=== PATIENT | male | born 1985 | race American Indian/Alaskan Native ===

== ENCOUNTER 2018-12-28 13:35 | Emergency (ER) | payer SELFPAY ==
--- NOTE | 2018-12-28 13:57 | Emergency Department Report ---
Blank Doc - Documentation Documentation: C/O weakness times 3-4 days. Admits to Smoking [place]. Hx/o anxiety. Feeling t ingling in hands and feet. No Vomiting admits to nauseated. Reports to increase anxiety which he will than smoke more [place]. No CP or SOB. This initial assessment diagnostic orders/clinical plan/treatment (s) is/Are subject change based on patient's health status, clinical progression and re- assessment by fellow clinical providers in the ED. Further treatment and work-up at subsequent clinical providers discretion. Patient/guardians urged not to elope from s their condition may be serious if not clinically assessed and managed. Inital order include:
--- NOTE | 2018-12-28 15:21 | Emergency Department Report ---
ED General Adult HPI - General Chief complaint: Weakness Stated complaint: WEAKNESS Time Seen by Provider: 12/28/18 13:54 Source: patient Mode of arrival: Ambulatory Limitations: No Limitations - History of Present Illness Initial comments: Patient is a 33-year-old male who is presenting with tingling to his hands and feet. Patient states this started several days ago. Patient states that a week ago he started having some tooth pain and took a Percocet. After taking the Percocet the next day the patient felt "weird". Patient then because of the strange feeling he was experiencing started smoking weed. Patient states he has been anxious since. Patient states he's had anxious feelings after smoking marijuana in the past. Patient denies any fevers chills nausea vomiting diarrhea at this time. Patient states the tingling is a hands and feet and occasionally does feel palpitations. Severity scale (0 -10): 0 Consistency: constant Associated Symptoms: denies: chest pain, cough, diaphoresis, fever/chills, loss of appetite, malaise, nausea/vomiting, rash, seizure, shortness of breath, syncope, weakness - Related Data Previous Rx's Medication Instructions Recorded Last Taken Type LORazepam [Ativan] 0.5 mg PO BID #14 tab 06/08/16 Unknown Rx Promethazine [Phenergan TAB] 25 mg PO Q6HR PRN #20 tab 06/08/16 Unknown Rx hydrOXYzine PAMOATE [Vistaril] 25 mg PO TID PRN #20 capsule 12/28/18 Unknown Rx Allergies Allergy/AdvReac Type Severity Reaction Status Date / Time No Known Allergies Allergy Verified 12/28/18 13:36 ED Review of Systems ROS: Stated complaint: WEAKNESS Other details as noted in HPI Comment: All other systems reviewed and negative ED Past Medical Hx - Past Medical History Hx Psychiatric Treatment: Yes (anxiety) - Social History Smoking Status: Current Every Day Smoker Substance Use Type: Marijuana - Medications Home Medications: Home Medications Medication Instructions Recorded Confirmed Last Taken Type LORazepam [Ativan] 0.5 mg PO BID #14 tab 06/08/16 Unknown Rx Promethazine [Phenergan TAB] 25 mg PO Q6HR PRN #20 tab 06/08/16 Unknown Rx hydrOXYzine PAMOATE [Vistaril] 25 mg PO TID PRN #20 capsule 12/28/18 Unknown Rx ED Physical Exam - General Limitations: No Limitations General appearance: alert, in no apparent distress - Head Head exam: Present: atraumatic, normocephalic - Eye Eye exam: Present: normal appearance, PERRL, EOMI - ENT ENT exam: Present: normal orophraynx, mucous membranes moist - Neck Neck exam: Present: normal inspection - Respiratory Respiratory exam: Present: normal lung sounds bilaterally. Absent: respiratory distress, wheezes, rales, rhonchi, stridor - Cardiovascular Cardiovascular Exam: Present: regular rate, normal rhythm, normal heart sounds. Absent: systolic murmur, diastolic murmur, rubs, gallop - GI/Abdominal GI/Abdominal exam: Present: soft, normal bowel sounds. Absent: distended, tenderness, guarding, rebound - Rectal Rectal exam: Present: deferred - Extremities Exam Extremities exam: Present: normal inspection - Back Exam Back exam: Present: normal inspection - Neurological Exam Neurological exam: Present: alert, oriented X3 - Psychiatric Psychiatric exam: Present: normal affect, normal mood - Skin Skin exam: Present: warm, dry, intact, normal color. Absent: rash ED Course Vital Signs 12/28/18 13:54 Temperature 98.3 F Pulse Rate 76 Respiratory 18 Rate Blood Pressure 125/79 O2 Sat by Pulse 100 Oximetry ED Medical Decision Making - Medical Decision Making Vital Signs Temp Pulse Resp BP Pulse Ox 98.3 F 76 18 125/79 100 12/28/18 13:54 12/28/18 13:54 12/28/18 13:54 12/28/18 13:54 12/28/18 13:54 The patient is a 33-year-old male who is anxious after using marijuana. The patient does not be started on Vistaril and discharged home with a follow-up with methow Critical care attestation.: If time is entered above; I have spent that time in minutes in the direct care of this critically ill patient, excluding procedure time. ED Disposition Clinical Impression: Marijuana abuse, Anxiety Disposition: DC-01 TO HOME OR SELFCARE Is pt being admited?: No Condition: Stable Instructions: Cannabis Abuse (ED), Anxiety (ED) Prescriptions: hydrOXYzine PAMOATE [Vistaril] 25 mg PO TID PRN #20 capsule PRN Reason: Anxiety Referrals: NICHELLE MAX MD [Primary Care Provider] - 3-5 Days Time of Disposition: 15:31
== END 2018-12-28 15:47 | disposition home or self-care (01) ==
LOC: ED 13:35
CPT/HCPCS: 99281

== ENCOUNTER 2019-01-08 19:52 | Emergency (ER) | payer OTHER ==
--- NOTE | 2019-01-08 20:58 | Emergency Department Report ---
ED Anxiety HPI - General Chief Complaint: Anxiety Stated Complaint: ANXIETY Time Seen by Provider: 01/08/19 20:31 Source: patient Mode of arrival: Ambulatory Limitations: No Limitations - History of Present Illness Initial Comments: 33-year-old male presents to the hospital with complaint of continued intermittent anxiety for 2 weeks. Patient was seen here on December 28 for the similar symptoms. He did not fill the medications. He states that he is under a lot of stress recently ended a stressful relationship, lost his car recently got then got it back, and also recently lost his job. Patient also states he was smoking marijuana all day, daily, for several years and abruptly stop smoking 2 weeks ago. Since then he he was experiencing intermittent headaches which are improving, trouble sleeping, intermittent anxious feeling with paresthesias to hands and feet. Patient denies pain. Pt states that he was as any stroke in the right eye while playing sports week ago. Since then his eye has been red. He denies any blurred vision, persistent eye pain, or drainage. - Related Data Home Medications: Previous Rx's Medication Instructions Recorded Last Taken Type LORazepam [Ativan] 0.5 mg PO BID #14 tab 06/08/16 Unknown Rx Promethazine [Phenergan TAB] 25 mg PO Q6HR PRN #20 tab 06/08/16 Unknown Rx hydrOXYzine PAMOATE [Vistaril] 25 mg PO TID PRN #20 capsule 01/08/19 Unknown Rx Allergies/Adverse Reactions: Allergies Allergy/AdvReac Type Severity Reaction Status Date / Time No Known Allergies Allergy Verified 12/28/18 13:36 ED Review of Systems ROS: Stated complaint: ANXIETY Other details as noted in HPI Comment: All other systems reviewed and negative ED Past Medical Hx - Past Medical History Previous Medical History?: Yes Hx Psychiatric Treatment: Yes (anxiety) - Surgical History Past Surgical History?: No - Social History Smoking Status: Former Smoker Substance Use Type: None - Medications Home Medications: Home Medications Medication Instructions Recorded Confirmed Last Taken Type LORazepam [Ativan] 0.5 mg PO BID #14 tab 06/08/16 Unknown Rx Promethazine [Phenergan TAB] 25 mg PO Q6HR PRN #20 tab 06/08/16 Unknown Rx hydrOXYzine PAMOATE [Vistaril] 25 mg PO TID PRN #20 capsule 01/08/19 Unknown Rx ED Physical Exam - General Limitations: No Limitations - Other Other exam information: General: No limitations, patient is alert in no acute distress Head exam: Atraumatic, normocephalic Eyes exam: Bilateral conjunctival erythema without discharge. Pupils equal and Reactive to light. Extraocular movement is intact ENT: Moist mucous membrane, normal oropharynx Neck exam: Normal inspection, full range of motion, no meningismus nontender Respiratory exam: Clear to auscultation bilateral, no wheezes, rales, crackles Cardiovascular: Normal rate and rhythm, normal heart sounds Abdomen: Soft, nondistended, and nontender, with normal bowel sounds, no rebound, or guarding Extremity: Full range of motion normal inspection no deformity Back: Normal Inspection, full range of motion, no tenderness Neurologic: Alert, oriented x3, cranial nerves intact, no motor or sensory deficit Psychiatric: normal affect, normal mood Skin: Warm, dry, intact ED Course Vital Signs 01/08/19 19:53 Temperature 97.5 F L Pulse Rate 82 Respiratory 18 Rate Blood Pressure 123/85 O2 Sat by Pulse 100 Oximetry ED Medical Decision Making - Medical Decision Making Patient's eyes are both red. He denies current marijuana use. No signs of pruritus or infection. I suspect his symptoms are related to stress, underlying anxiety as well as marijuana withdrawal. Patient encouraged to follow-up with psych visceral when necessary. - Differential Diagnosis drug withdrawal, substance abuse Critical Care Time: No Critical care attestation.: If time is entered above; I have spent that time in minutes in the direct care of this critically ill patient, excluding procedure time. ED Disposition Clinical Impression: Anxiety, Cannabis withdrawal Disposition: DC-01 TO HOME OR SELFCARE Is pt being admited?: No Does the pt Need Aspirin: No Condition: Stable Instructions: Cannabis Abuse (ED), Anxiety (ED) Additional Instructions: Take the medication as prescribed. Follow up with your doctor or the clinic/doctor provided. Return if symptoms worsen as indicated by your discharge instructions Prescriptions: hydrOXYzine PAMOATE [Vistaril] 25 mg PO TID PRN #20 capsule PRN Reason: Anxiety Referrals: [facility] [Outside] - 3-5 Days Time of Disposition: 20:58
== END 2019-01-08 21:48 | disposition home or self-care (01) ==
LOC: ED 19:52

== ENCOUNTER 2021-10-31 09:42 | Emergency (ER) | payer SELFPAY ==
[2021-10-31] MEDS ORDERED: SODIUM CHLORIDE 0.9% 1000 ML 1,000 ML IV ONE (11:47)
--- NOTE | 2021-10-31 11:47 | Emergency Department Report ---
ED General Adult HPI - General Chief complaint: Syncope Stated complaint: anxiety Time Seen by Provider: 10/31/21 11:25 Source: patient Mode of arrival: Ambulatory Limitations: No Limitations - History of Present Illness Initial comments: 36-year-old male with a past medical history of anxiety presents to the ER today with complaints of "anxiety is acting up", "a little chest pain", nausea, dizzy and syncope. Patient states that over the past 2 days, his anxiety has been acting up, he is also started with "a little" chest pain on the left side today, is also been nauseous for the past 2 days with no vomiting and yesterday was getting out of the shower he felt dizzy and passed out. He states that he has been having intermittent episodes of generalized weakness and fatigue. He states that he thought he was coming down with a cold sore yesterday he took both NyQuil and DayQuil. He states that he is currently residing at a motel and he is living by himself. There was no witnessed a syncopal episode but he states he thinks he was out for a couple minutes. He states that he did call EMS who evaluated yesterday and he states that he did a EKG and checked his vitals and he was told that it could be related to him taking a hot bath in the shower which calamity passed out. He states that he has not passed out since yesterday. He states he smokes marijuana but no other illicit drug use. He denies alcohol abuse. He denies any family history of heart disease. He denies any recent ill contacts or COVID-19 exposures. He history of DVT or PE or any risk factors for DVT or PE. Complaint: Anxiety, "a little CP", nausea, syncope -: days(s) - Related Data Previous Rx's Medication Instructions Recorded Last Taken Type LORazepam [Ativan] 0.5 mg PO BID #14 tab 06/08/16 Unknown Rx Promethazine [Phenergan TAB] 25 mg PO Q6HR PRN #20 tab 06/08/16 Unknown Rx hydrOXYzine PAMOATE [Vistaril] 25 mg PO TID PRN #20 capsule 01/08/19 Unknown Rx Ondansetron [Zofran Odt] 4 mg PO Q8HR PRN #15 tab.rapdis 10/31/21 Unknown Rx Allergies Allergy/AdvReac Type Severity Reaction Status Date / Time No Known Allergies Allergy Verified 12/28/18 13:36 ED Review of Systems ROS: Stated complaint: anxiety Other details as noted in HPI Comment: All other systems reviewed and negative Eyes: denies: eye pain, eye discharge, vision change ENT: denies: ear pain, throat pain, dental pain, hearing loss, epistaxis, congestion Respiratory: denies: cough, orthopnea, shortness of breath, SOB with exertion, SOB at rest, wheezing Cardiovascular: denies: chest pain, palpitations, dyspnea on exertion, edema, syncope, paroxysmal nocturnal dyspnea Gastrointestinal: nausea. denies: abdominal pain, vomiting, diarrhea, constipation, hematemesis, melena, hematochezia Genitourinary: denies: urgency, dysuria, frequency, hematuria, discharge, testicular pain, testicular mass Musculoskeletal: denies: back pain, joint swelling, arthralgia, myalgia Skin: denies: rash, lesions, pruritus Neurological: weakness, vertigo, other (Syncope). denies: headache, numbness, paresthesias, confusion Psychiatric: denies: anxiety, depression, auditory hallucinations, visual hallucinations, homicidal thoughts, suicidal thoughts Hematological/Lymphatic: denies: easy bleeding, easy bruising ED Past Medical Hx - Past Medical History Previous Medical History?: Yes Hx Psychiatric Treatment: Yes (anxiety) - Social History Smoking Status: Former Smoker Substance Use Type: None - Medications Home Medications: Home Medications Medication Instructions Recorded Confirmed Last Taken Type LORazepam [Ativan] 0.5 mg PO BID #14 tab 06/08/16 Unknown Rx Promethazine [Phenergan TAB] 25 mg PO Q6HR PRN #20 tab 06/08/16 Unknown Rx hydrOXYzine PAMOATE [Vistaril] 25 mg PO TID PRN #20 capsule 01/08/19 Unknown Rx Ondansetron [Zofran Odt] 4 mg PO Q8HR PRN #15 tab.rapdis 10/31/21 Unknown Rx ED Physical Exam - General Limitations: No Limitations General appearance: alert, in no apparent distress - Head Head exam: Present: atraumatic, normocephalic, normal inspection - Eye Eye exam: Present: normal appearance, PERRL, EOMI Pupils: Present: normal accommodation - ENT ENT exam: Present: normal exam, mucous membranes moist, TM's normal bilaterally - Neck Neck exam: Present: normal inspection, full ROM. Absent: tenderness, meningismus - Respiratory Respiratory exam: Present: normal lung sounds bilaterally. Absent: respiratory distress, wheezes, rales, rhonchi, stridor - Cardiovascular Cardiovascular Exam: Present: regular rate, normal rhythm, normal heart sounds - GI/Abdominal GI/Abdominal exam: Present: soft. Absent: distended, tenderness, guarding - Neurological Exam Neurological exam: Present: alert, oriented X3, CN II-XII intact, normal gait - Psychiatric Psychiatric exam: Present: normal affect, normal mood - Skin Skin exam: Present: intact ED Course Vital Signs 10/31/21 10:37 Temperature 98.4 F Pulse Rate 69 Respiratory 16 Rate Blood Pressure 131/90 O2 Sat by Pulse 99 Oximetry ED Medical Decision Making - Lab Data Result diagrams: 10/31/21 11:12 10/31/21 11:12 - EKG Data EKG shows normal: sinus rhythm Rate: bradycardia (54) - EKG Data Interpretation: normal EKG - Medical Decision Making All labs reviewed --no significant abnormality labs today. EKG shows sinus bradycardia with a rate of 54 but otherwise EKG is normal. Patient has been resting comfortably in the recliner. He has been observed on his phone. He is awake alert and oriented x3, is neurologically intact with a normal gait and he has no focal deficits on exam. He is well-appearing. He appears well-hydrated. He is not toxic not ill-appearing. He is not in any acute pain or respiratory distress. He has no meningeal signs on exam. He has a soft nontender abdomen. His vital signs are stable. The history, exam, diagnostic testing and current condition does not suggest that this patient is having acute [place], PE (PERC neg) significant arrhythmia, unstable angina, stroke/TIA, significant vascular events, gastrointestinal bleeding, sepsis or other significant pathology that would warrant further testing, continued ED treatment, admission or cardiology or neurology consult at this time. Patient symptoms could be related to his anxiety. Discussed all results with patient. Informed him that he will need to follow-up with primary care doctor to manage his anxiety. He was prescribed lorazepam once in the past from here but informed him that this is something we cannot continue to prescribe. He will need to follow-up with the PCP. Patient expressed understanding for instructions and agree with plan. Patient was stable at time of discharge. Critical care attestation.: If time is entered above; I have spent that time in minutes in the direct care of this critically ill patient, excluding procedure time. ED Disposition Clinical Impression: Anxiety, Nonspecific chest pain, Syncope Disposition: 01 HOME / SELF CARE / HOMELESS Is pt being admited?: No Does the pt Need Aspirin: No Condition: Stable Instructions: Nonspecific Chest Pain, Adult, Chest Wall Pain, Syncope, [id number], Syncope (ED) Additional Instructions: I recommend that you follow-up with the primary care doctor listed on your discharge instructions next week for further evaluation including management of anxiety. Take the Zofran as needed for nausea. You can take Tylenol and/or ibuprofen as needed for pain. Doing lots of fluids. Return to the ER if your symptoms worsens or changes in any way. Prescriptions: Ondansetron [Zofran Odt] 4 mg PO Q8HR PRN #15 tab.rapdis PRN Reason: nausea/vomiting Referrals: PRIMARY CARE, [Primary Care Provider] - 3-5 Days [facility] [Provider Group] - 3-5 Days [facility] [Provider Group] - 3-5 Days Time of Disposition: 13:58
[2021-10-31] MEDS ORDERED: METOCLOPRAMIDE 10 MG/2 ML INJ IV ONE (11:48)
[2021-10-31] MEDS ORDERED: ONDANSETRON 4 MG ODT TAB PO ONE (11:57)
[2021-10-31 12:02] LABS: Hematocrit 48.7 % (35.5-45.6); Hemoglobin 15.8 gm/dl (11.8-15.2); Mean Corpuscular HGB Conc 32 % (32-34); Mean Corpuscular Volume 94 fl (84-94); Platelet Count 163 K/mm3 (140-440); Red Blood Count 5.19 M/mm3 (3.65-5.03); Red Cell Distribution Width 13.8 % (13.2-15.2)
[2021-10-31 12:15] LABS: Mucus,Urine FEW /HPF
[2021-10-31 12:25] LABS: Alanine Aminotransferase 18 units/L (7-56); Albumin 4.5 g/dL (3.9-5); BUN/Creatinine Ratio 7; Blood Urea Nitrogen 9 mg/dL (9-20); Calcium 9.3 mg/dL (8.4-10.2); Hemolysis Index 15
[2021-10-31 12:26] LABS: Bilirubin,Urine Negative (Negative); Blood,Urine Trace (Negative); Color,Urine Yellow (Yellow); Protein,Urine <15 mg/dL mg/dL (Negative)
[2021-10-31 12:27] LABS: Urobilinogen,Urine < 2.0 mg/dL (<2.0)
[2021-10-31 14:12] VITALS: BP 136/94
[2021-10-31 15:07] LABS: Total Cells Counted 100
[2021-10-31 15:08] LABS: Giant Platelets Few; Platelet Estimate Consistent w Auto
--- NOTE | 2021-11-01 18:15 | Electrocardiograph Report ---
[facility] Test Date: 2021-10-31 Test Time: 12:03:19 Pat Name: RAINE GALARZA Department: Room: Gender: M [employer] Wel[employer] Operator: DONOVAN : 1985 Requested By: DEVYN DA SILVA Order Number: [id number] Reading MD: Alejandro Castellanos Measurements Intervals [place] Rate: 54 P: 75 IN: 134 QRS: 70 QRSD: 97 T: 57 QT: 401 QTc: 381 Interpretive Statements Sinus bradycardia ST elev, probable normal early repol pattern No previous ECG available for comparison Electronically Signed On 11-01-2021 18:14:35 EST by Alejandro Castellanos
== END 2021-10-31 14:12 | disposition home or self-care (01) ==
LOC: ED 09:42
DX: F41.9 Anxiety disorder, unspecified (principal); R07.9 Chest pain, unspecified; R55 Syncope and collapse; Z87.891 Personal history of nicotine dependence
CPT/HCPCS: 36415; 80053; 81001; 85007; 85025; 93005; 99283; J3490; Q0162